=== PATIENT | female | born 1980 | race American Indian/Alaskan Native ===

== ENCOUNTER 2019-05-04 12:16 | Emergency (ER) | payer SELFPAY ==
[2019-05-04 13:00] VITALS: BP 157/99
[2019-05-04 13:32] LABS: Basophils % (Auto) 0.3 % (0.0-1.8); Eosinophils # (Auto) 0.2 K/mm3 (0.0-0.4); Eosinophils % (Auto) 2.3 % (0.0-4.3); Hematocrit 36.8 % (30.3-42.9); Lymphocytes # (Auto) 1.8 K/mm3 (1.2-5.4); Lymphocytes % (Auto) 17.2 % (13.4-35.0); Mean Corpuscular HGB Conc 33 % (30-34); Mean Corpuscular Volume 80 fl (79-97); Monocytes # (Auto) 0.7 K/mm3 (0.0-0.8); Monocytes % (Auto) 6.8 % (0.0-7.3); Platelet Count 323 K/mm3 (140-440); Red Blood Count 4.58 M/mm3 (3.65-5.03)
[2019-05-04 13:57] LABS: Alanine Aminotransferase 46 units/L (7-56); Albumin 4.3 g/dL (3.9-5); BUN/Creatinine Ratio 8; Blood Urea Nitrogen 5 mg/dL (7-17); Calcium 9.4 mg/dL (8.4-10.2); Hemolysis Index 9
[2019-05-04 14:02] LABS: Bilirubin,Urine NEG (Negative); Blood,Urine SM (Negative); Color,Urine Yellow (Yellow); Mucus,Urine FEW /HPF; Protein,Urine <15 mg/dL mg/dL (Negative); Urobilinogen,Urine < 2.0 mg/dL (<2.0); WBC,Urine < 1.0 /HPF (0.0-6.0)
--- NOTE | 2019-05-04 14:07 | Emergency Department Report ---
ED Female HPI - General Chief complaint: Abdominal Pain Stated complaint: ABD PAIN Time Seen by Provider: 05/04/19 13:52 Source: patient Mode of arrival: Ambulatory Limitations: No Limitations - History of Present Illness Initial comments: Patient is a 38-year-old female with no significant past medical history. Patient presented to the ER complaining of pelvic pain and vaginal discharge for the last 5 days. Patient stated that she went to another ER and she was told that she had yeast infection and she was given Diflucan but no improvement. P atient stated that she had an IUD. Patient denied any fever or chills. MD Complaint: vaginal discharge, pelvic pain -: days(s) Radiation: suprapubic Severity: moderate Severity scale (0 -10): 4 Quality: cramping Are you Now?: No - Related Data Sexually active: Yes Allergies Allergy/AdvReac Type Severity Reaction Status Date / Time ceftriaxone [From Rocephin] Allergy Hives Verified 05/04/19 12:21 ED Review of Systems ROS: Stated complaint: ABD PAIN Other details as noted in HPI Comment: All other systems reviewed and negative Constitutional: denies: chills, fever Respiratory: denies: cough, shortness of breath Cardiovascular: denies: chest pain, palpitations Gastrointestinal: denies: abdominal pain, nausea, vomiting Genitourinary: discharge. denies: abnormal menses Neurological: denies: headache, weakness ED Past Medical Hx - Past Medical History Previous Medical History?: Yes Hx Hypertension: Yes - Surgical History Past Surgical History?: Yes Additional Surgical History: C section - Social History Smoking Status: Current Every Day Smoker Substance Use Type: None ED Physical Exam - General Limitations: No Limitations General appearance: alert, in no apparent distress - Head Head exam: Present: atraumatic, normocephalic, normal inspection - Eye Eye exam: Present: normal appearance, PERRL - ENT ENT exam: Present: normal exam, normal orophraynx, mucous membranes moist - Neck Neck exam: Present: normal inspection, full ROM. Absent: tenderness, meningismus, lymphadenopathy, thyromegaly - Respiratory Respiratory exam: Present: normal lung sounds bilaterally - Cardiovascular Cardiovascular Exam: Present: regular rate, normal rhythm, normal heart sounds - GI/Abdominal GI/Abdominal exam: Present: soft, normal bowel sounds. Absent: distended, tenderness, guarding, rebound, rigid, organomegaly, mass, bruit, pulsatile mass, hernia - External exam: Present: normal external exam Speculum exam: Present: normal speculum exam, vaginal discharge. Absent: er ythema, cervical discharge, vaginal bleeding, foreign body, tissue, laceration Bi-manual exam: Present: normal bi-manual exam - Extremities Exam Extremities exam: Present: normal inspection, full ROM, normal capillary refill. Absent: tenderness, pedal edema, calf tenderness - Back Exam Back exam: Present: normal inspection, full ROM. Absent: CVA tenderness (R), CVA tenderness (L), muscle spasm, paraspinal tenderness, vertebral tenderness - Neurological Exam Neurological exam: Present: alert, oriented X3, CN II-XII intact, normal gait, reflexes normal - Psychiatric Psychiatric exam: Present: normal mood - Skin Skin exam: Present: warm, intact, normal color ED Course Vital Signs 05/04/19 05/04/19 12:58 14:52 Temperature 99.2 F Pulse Rate 82 Respiratory 16 16 Rate Blood Pressure 157/99 O2 Sat by Pulse 100 Oximetry ED Medical Decision Making - Lab Data Result diagrams: 05/04/19 13:12 05/04/19 13:12 - Radiology Data Radiology results: report reviewed - Medical Decision Making Pelvic ultrasound is unremarkable. Critical care attestation.: If time is entered above; I have spent that time in minutes in the direct care of this critically ill patient, excluding procedure time. ED Disposition Clinical Impression: Pelvic pain, Bacterial vaginosis Disposition: -01 TO HOME OR SELFCARE Is pt being admited?: No Condition: Stable Instructions: Abdominal Pain (ED), Bacterial Vaginosis (ED) Referrals: PRIMARY CARE, [Primary Care Provider] - 3-5 Days Forms: STI Treatment and Prevention
[2019-05-04] MEDS ORDERED: TORADOL ONE (14:50)
[2019-05-04] MEDS ORDERED: TORADOL IM ONE (14:51)
--- NOTE | 2019-05-05 07:50 | Ultrasound Report ---
ULTRASOUND PELVIC COMPLETE HISTORY: Pelvic pain, vaginal discharge, right pelvic pain for 2 weeks TECHNIQUE: Transabdominal ultrasound with color Doppler imaging. COMPARISON: None. FINDINGS: The uterus is anteverted. The uterus measures 10.3 x 6.0 x 5.4 cm. No uterine fibroid disea se is identified. An intrauterine device is identified within the endometrial canal. The endometrium measures 10 mm. The ovaries are normal size, contour and echotexture. Normal follicles are identified bilaterally. No pelvic fluid collection is identified. IMPRESSION: Unremarkable pelvic ultrasound. Signer Name: Ulisses Hawley Jr, MD Signed: 05/04/2019 2:45 PM Workstation Name: [id number]
== END 2019-05-04 16:30 | disposition home or self-care (01) ==
LOC: ED 12:16
DX: N76.0 Acute vaginitis (principal); I10 Essential (primary) hypertension; F17.200 Nicotine dependence, unspecified, uncomplicated; Z88.8 Allergy status to other drugs, medicaments and biological substances
CPT/HCPCS: 36415; 76856; 80053; 81001; 85025; 87210; 87591; 96372; 99284; J1885